=== PATIENT | male | born 1965 | race Caucasian/White ===

== ENCOUNTER 2019-11-14 20:14 | Observation (INO) ==
[2019-11-14] MEDS ORDERED: Isovue-370 500 ML BOTTLE IVP ONE (20:24)
[2019-11-14 20:32] LABS: Hematocrit 42.8 % (37.5-50.1); Hemoglobin 13.7 g/dL (12.9-16.9); Mean Corpuscular Hemoglobin 28.8 pg (28.0-33.3); Mean Corpuscular Volume 89.9 fL (83.0-100.0); Mean Platelet Volume 8.6 fL (9.4-12.4); Platelet Count 235 K/mcL (140-400); Red Blood Count 4.76 M/mcL (4.19-5.50); Red Cell Distribution Width 13.3 % (11.5-14.5); White Blood Count 8.2 K/mcL (4.3-11.1)
[2019-11-14 20:56] LABS: BUN/Creatinine Ratio 16 (6-26); Blood Urea Nitrogen 14 mg/dL (6-20); Calcium 9.7 mg/dL (8.6-10.3); Carbon Dioxide 29 mEq/L (23-29); Chloride 102 mEq/L (98-107); Glucose 98 mg/dL (70-105); Osmolality,Calculated 288 (280-300); Potassium 4.1 mEq/L (3.5-5.1); Sodium 139 mEq/L (136-145); eGFR For African Americans > 60 (> 60); eGFR For Non-African Americans > 60 (> 60)
[2019-11-14 20:57] LABS: Troponin I < 0.03 ng/mL (< 0.04)
[2019-11-14] MEDS ORDERED: Naloxone 0.4 MG/ML INJ IVP PRN (21:10)
[2019-11-14] MEDS ORDERED: predniSONE 20 MG TABLET PO ONE (21:14)
[2019-11-14] MEDS ORDERED: Ketorolac 30 MG/ML VIAL IVP PRN (23:06)
[2019-11-14] MEDS ORDERED: Gadolinium Contrast Agent (WT Based) IV PRN (23:30)
[2019-11-15] MEDS ORDERED: Acyclovir 200 MG CAPSULE PO SCH (09:00)
[2019-11-15] MEDS ORDERED: predniSONE 20 MG TABLET PO SCH ×2 (09:00)
[2019-11-15 11:24] VITALS: BP 108/65
[2019-11-15] MEDS ORDERED: Aspirin 81 MG TAB.CHEW PO SCH (11:45)
[2019-11-15] MEDS ORDERED: *HR* Heparin 5,000 UNIT/ML VIAL SQ SCH (14:00)
== END 2019-11-15 12:53 | disposition home or self-care (01) ==
LOC: 3BNU 20:14 → EMEROOARM 20:14 → SUATTDRO 21:13 → 3BNU 21:38
PROVIDERS: ADMIT Internal Medicine; ATTEND Internal Medicine